=== PATIENT | male | born 1970 | race Caucasian/White ===

== ENCOUNTER 2018-12-28 20:07 | Emergency (ER) | payer BC, OTHER ==
[~2018-12-28] VITALS: Ht 182.9 cm; Wt 83.9 kg
[2018-12-28] MEDS ORDERED: DEXAMETHASONE 4 MG/ML SDV (DECADRON) IM ONE (21:15)
[2018-12-28] MEDS ORDERED: PRD20T PO (21:16)
--- NOTE | 2018-12-28 21:16 | ED General ---
General Stated Complaint: BODY RASH History of Present Illness Date Seen by Provider: Dec 28, 2018 Time Seen by Provider: 21:11 Initial Comments Patient presenting to the emergency department for evaluation of a rash on bilateral arms and bilateral knees that started approximately to 3 days ago after pulling some weeds in his yard he thinks he was exposed to something. It appears to be raised vesicular weeping especially on his right forearm. The rash on his left arm and bilateral knees are not as severe. He says it is not painful just intensely pruritic. He denies any fevers chills nausea vomiting or other systemic symptoms. Allergies and Home Medications Allergies Coded Allergies: No Known Drug Allergies (Unverified , 12/28/18) Patient Home Medication List Home Medication List Reviewed: Yes Review of Systems Review of Systems Constitutional: no symptoms reported EENTM: no symptoms reported Respiratory: no symptoms reported Cardiovascular: no symptoms reported Skin: rash Past Ecsclqz-Lxixww-Kogcku Hx Patient Social History Recent Foreign Travel: No Contact w/Someone Who Travel: No Physical Exam Vital Signs Capillary Refill : Height, Weight, BMI Height: '" Weight: lbs. oz. kg; BMI Method: General Appearance: No Apparent Distress, WD/WN Respiratory: No Respiratory Distress Cardiovascular: Regular Rate, Rhythm Neurologic/Psychiatric: Alert, Oriented x3 Skin: Rash (vesicular weeping rash most prominent on the right forearm circumferentially was also present on the left arm and bilateral knees.) Progress/Results/Core Measures Suspected Sepsis SIRS Temperature: Pulse: Respiratory Rate: Blood Pressure / Mean: Results/Orders My Orders Orders - LISBETH DOOLEY DO Dexamethasone Injection (Decadron Inject (12/28/18 21:15) Vital Signs/I&O Capillary Refill : Progress Note : Progress Note Rash is not consistent with zoster rather this is likely a poison gabrielle or poison sumac exposure. He will be given a dose of intramuscular Decadron here and sent home on a steroid taper. Patient told to follow up primary care provider within 2-3 days and come back to the ED sooner with worsening pain rash fevers or other general concerns. Patient aware and agreeable with plan and verbalized understanding of the above instructions. Departure Impression Primary Impression: Poison gabrielle dermatitis Disposition: 01 HOME, SELF-CARE Condition: Stable Departure-Patient Inst. Referrals: NO,LOCAL PHYSICIAN (PCP) Primary Care Physician Patient Instructions: Poison Gabrielle Add. Discharge Instructions: Take benadryl for itching. Cover in calamine lotion. Take the steroids as prescribed. Scripts Prednisone (Prednisone) 20 Mg Tab 20 MG PO DAILY for 14 Days, #25 TAB 0 Refills Prov: LISBETH DOOLEY DO 12/28/18 LISBETH DOOLEY DO Dec 28, 2018 21:16
[2018-12-28 21:25] VITALS: BP 133/71
--- OUTSIDE RECORDS SUMMARY | 2018-12-29 04:31 | XMS REPORT | Continuity of Care Document ---
Author Organization Unknown Address Unknown Allergies Active Description Code Type Severity Reaction Onset Reported/Identified Relationship to Patient Clinical Status Yes NO NAME AVAILABLE 05893 DRUG N/A N/A Yes Fireants [id number] Animal Allergy Moderate N/A Medications There is no data. Problems Date Dx Coded Attending Type Code Diagnosis Diagnosed By 01/28/2017 Romario Martin MD M25.569 Pain in unspecified knee 02/05/2017 Romario Martin M25.561 Pain In Right Knee 06/09/2017 Romario Martin MD M54.5 Low back pain 06/09/2017 Romario Martin MD M62.82 Rhabdomyolysis 06/09/2017 Jenny Chung M62.82 Rhabdomyolysis 06/09/2017 Romario Martin MD R94.5 Abnormal results of liver function studies 06/09/2017 Jenny Chung R94.5 Abnormal results of liver function studies 06/11/2017 Jenny Chung M62.82 Rhabdomyolysis 06/18/2017 Jenny Chung M62.82 Rhabdomyolysis 07/15/2017 Jenny Chung S39.012D Strain Of Muscle, Fascia And Tendon Of Lower Back, Subsequent Encounter Procedures Code [place] [address] Knee 3 View RT- NG 01/28/2017 67132 Office/outpatient visit; established patient, level 3 01/28/2017 TCARE1 Transfer of Care from Emergency Department 06/09/2017 86546 CPK-NG 06/09/2017 28537 Comprehensive metabolic panel- 06/09/2017 66908* Urinalysis. 06/09/2017 31182 CBC with Auto Diff-NG 06/09/2017 36751 Urinalysis with culture if indicated- NG 06/09/2017 41714 Culture, Urine-NG 06/09/2017 56221 Hepatitis Panel Acute-NG 06/09/2017 46820 Office/outpatient visit; established patient, level 3 06/09/2017 75258 CPK-NG 06/10/2017 89026 Comprehensive metabolic panel- NG 06/10/2017 68203 Comprehensive metabolic panel- NG 06/12/2017 39038 CPK-NG 06/12/2017 63166* Physical Therapy 06/18/2017 67381 Physical Therapy Evaluation - NG 06/18/2017 Results There is no data. Encounters ACCT No. Visit Date/Time Discharge Status Pt. Type Provider Facility Loc./Unit Complaint [id number] 06/10/2017 10:33:48 06/10/2017 23:59:59 CLS Outpatient Tawny CHUNG [facility] [id number] 06/09/2017 17:26:19 06/09/2017 23:59:59 CLS Outpatient Tawny CHUNG [facility] [id number] 06/18/2017 13:22:43 06/18/2017 13:24:39 DIS Unknown Veronica SMIHT, Romario Edward [facility] [id number] 06/26/2017 13:05:00 08/01/2017 10:11:00 DIS Outpatient Jenny Chung [facility] [id number] 06/18/2017 08:20:00 06/18/2017 23:59:00 DIS Outpatient Jenny Chung [facility] [id number] 06/11/2017 09:29:00 06/11/2017 23:59:00 DIS Outpatient Jenny Chung [facility] [id number] 06/09/2017 11:17:00 06/09/2017 23:59:00 DIS Outpatient Jenny Chung [facility] [id number] 01/28/2017 13:45:00 01/28/2017 23:59:00 DIS Outpatient Romario Martin [facility] Radiology
== END 2018-12-28 21:25 | disposition home or self-care (01) ==
LOC: ER FS 20:09
DX: L23.7 Allergic contact dermatitis due to plants, except food (principal)
CPT/HCPCS: 99284

== ENCOUNTER 2021-06-24 17:19 | Emergency (ER) | payer SELFPAY ==
[~2021-06-24] VITALS: Ht 185.5 cm; Wt 85.1 kg
[~2021-06-24 17:19] MED LIST: PRD20T PO
--- OUTSIDE RECORDS SUMMARY | 2021-06-24 17:25 | XMS REPORT | Clinical Summary ---
Author Author [facility] Organization [facility] Address Unknown Phone Unavailable Care Team Providers Care Dollyman Name Role Phone PCP Unavailable Allergies Not on File Medications Not on file Active Problems Not on file Social History Date Tobacco Use Types Packs/Day Years Used Never Assessed Sex Assigned at Date Recorded Not on file Last Filed Vital Signs Not on file Plan of Treatment Health Maintenance Due Date Last Done Comments Varicella Vaccines (1 of 1973 2 - 2-dose childhood series) COVID-19 Vaccine (1) 1977 DTaP,Tdap,and Td Vaccines 12/11/1991 (1 - Tdap) MMR Vaccines-Adult 12/11/1991 Influenza Vaccine (#1) 2021 Pneumo-Vaccine: 65+Yrs (1 2037 of 1 - PPSV23) Hepatitis C Screening Completed 06/09/2017 HIB Vaccines Aged Out No longer eligible based on patient's age to complete this topic IPV Vaccines Aged Out No longer eligible based on patient's age to complete this topic Meningococcal Vaccine Aged Out No longer eligib le based on patient's age to complete this topic Pneumo-Vaccine: Peds (0-5 Aged Out No longer el igible based on patient's age to Yrs) & At-Risk Patients complete this topic (6-64 Yrs) Rotavirus Vaccines Aged Out No longer eligible based on patient's age to complete this topic Results Not on filefrom Last 3 Months
[2021-06-24] MEDS ORDERED: NS IV 1000 ML 1,000 ML IV SCH (18:00)
--- NOTE | 2021-06-24 18:09 | ED Abdominal Pain ---
General Chief Complaint: Abdominal/GI Problems Stated Complaint: DIARRHEA,FEVER 2 DAYS AGO Source of Information: Patient Exam Limitations: No Limitations History of Present Illness Date Seen by Provider: Jun 24, 2021 Time Seen by Provider: 19:30 Initial Comments Patient is a 50-year-old male who presents with 7-day history of diarrhea. Patient states he developed fever, abdominal cramping with diarrhea starting 7 days ago. The fever body aches and lasted for about 2 to 3 days and was accompanied by watery diarrhea. Fever has since resolved but he has continued to have watery diarrhea every 20 to 30 minutes for the past 3 days. It is worse with eating. He has tried various mcwg-bej-pkzcecv remedies including charcoal and Imodium but discontinued the Imodium due to cramping. Reports feeling dizzy upon standing. He denies syncope, chest pain palpitation shortness of breath or bloody stools. No recent antibiotics or history of C. difficile. He does report possible diarrhea illness exposure from coworker. No other acute symptoms or complaints. Timing/Duration: 6-7 Days Severity/Quality: Cramping Location: Other Radiation: Other Activities at Onset: Other Modifying Factors: Improves With Other Associated Symptoms: Other Allergies and Home Medications Allergies Coded Allergies: No Known Drug Allergies (Unverified , 12/28/18) Patient Home Medication List Home Medication List Reviewed: Yes Prednisone (Prednisone) 20 Mg Tab, 20 MG PO DAILY Prescribed by: LISBETH DOOLEY on 12/28/182115 Review of Systems Review of Systems Constitutional: see HPI EENTM: See HPI Respiratory: See HPI Cardiovascular: See HPI Gastrointestinal: See HPI Genitourinary: See HPI Musculoskeletal: see HPI Skin: see HPI Psychiatric/Neurological: See HPI Endocrine: See HPI Hematologic/Lymphatic: See HPI All Other Systems Reviewed Negative Unless Noted: Yes Past Uxjhvqt-Uohkje-Trpfvb Hx Patient Social History Tobacco Use?: Yes Seasonal Allergies Seasonal Allergies: No Past Medical History Surgeries: Yes Orthopedic Respiratory: No Cardiac: No Neurological: No Genitourinary: No Gastrointestinal: No Musculoskeletal: No Endocrine: No HEENT: No Cancer: No Psychosocial: No Integumentary: No Blood Disorders: No Adverse Reaction/Blood Tranf: No Physical Exam Vital Signs Vital Signs - First Documented 06/24/21 17:39 Temp 36.5 Pulse 88 Resp 16 B/P (MAP) 135/90 (105) Pulse Ox 96 O2 Delivery Room Air Capillary Refill : Height/Weight/BMI Height: 6'0" Weight: 185lbs. oz. 83.575646xh; BMI Method:Stated General Appearance: WD/WN, no apparent distress HEENT: PERRL/EOMI, normal ENT inspection, pharynx normal Neck: non-tender, full range of motion, supple Respiratory: lungs clear Cardiovascular: normal peripheral pulses, regular rate, rhythm Gastrointestinal: non tender, soft Focused Exam Sepsis Stage: Ruled Out Progress/Results/Core Measures Results/Orders Lab Results Laboratory Tests Test 06/24/21 18:05 Range/Units White Blood Count 6.5 4.3-11.0 10^3/uL Red Blood Count 5.41 4.30-5.52 10^6/uL Hemoglobin 14.9 13.3-17.7 g/dL Hematocrit 43 40-54 % Mean Corpuscular Volume 79 L 80-99 fL Mean Corpuscular Hemoglobin 28 25-34 pg Mean Corpuscular Hemoglobin Concent 35 32-36 g/dL Red Cell Distribution Width 12.4 10.0-14.5 % Platelet Count 364 130-400 10^3/uL Mean Platelet Volume 9.2 9.0-12.2 fL Immature Granulocyte % (Auto) 1 % Neutrophils (%) (Auto) 49 42-75 % Lymphocytes (%) (Auto) 35 12-44 % Monocytes (%) (Auto) 13 H 0-12 % Eosinophils (%) (Auto) 2 0-10 % Basophils (%) (Auto) 1 0-10 % Neutrophils # (Auto) 3.2 1.8-7.8 X 10^3 Lymphocytes # (Auto) 2.2 1.0-4.0 X 10^3 Monocytes # (Auto) 0.9 0.0-1.0 X 10^3 Eosinophils # (Auto) 0.1 0.0-0.3 10^3/uL Basophils # (Auto) 0.0 0.0-0.1 10^3/uL Immature Granulocyte # (Auto) 0.1 0.0-0.1 10^3/uL Sodium Level 136 135-145 MMOL/L Potassium Level 3.3 L 3.6-5.0 MMOL/L Chloride Level 95 L 98-107 MMOL/L Carbon Dioxide Level 28 21-32 MMOL/L Anion Gap 13 5-14 MMOL/L Blood Urea Nitrogen 15 7-18 MG/DL Creatinine 0.97 0.60-1.30 MG/DL Estimat Glomerular Filtration Rate 83 BUN/Creatinine Ratio 15 Glucose Level 112 H 70-105 MG/DL Calcium Level 8.9 8.5-10.1 MG/DL Corrected Calcium 8.9 8.5-10.1 MG/DL Total Bilirubin 0.2 0.1-1.0 MG/DL Aspartate Amino Transf (AST/SGOT) 11 5-34 U/L Alanine Aminotransferase (ALT/SGPT) 14 0-55 U/L Alkaline Phosphatase 47 40-136 U/L Total Protein 6.9 6.4-8.2 GM/DL Albumin 4.0 3.2-4.5 GM/DL My Orders Orders - ARON JIMENEZ DO Cbc With Automated Diff (06/24/21 17:50) Comprehensive Metabolic Panel (06/24/21 17:50) C Difficile Ag + Toxin A/B. (06/24/21 17:50) Isolation Central Supply Req (06/24/21 17:50) Ns Iv 1000 Ml (Sodium Chloride 0.9%) (06/24/21 18:00) Vital Signs/I&O 06/24/21 17:39 Temp 36.5 Pulse 88 Resp 16 B/P (MAP) 135/90 (105) Pulse Ox 96 O2 Delivery Room Air Departure Communication (Admissions) Infectious diarrhea lasting several days. Stable vital signs. Will obtain basic labs and send out stool sample out for C. difficile with close PCP follow- up. Impression Primary Impression: Diarrhea Disposition: 01 HOME, SELF-CARE Condition: Stable Departure-Patient Inst. Decision time for Depature: 19:09 Referrals: NO,LOCAL PHYSICIAN (PCP) Primary Care Physician Patient Instructions: Diarrhea in Adolescents and Adults Add. Discharge Instructions: Your evaluated in the emergency department for diarrhea. The exact cause of your symptoms has not been determined. Please take Pepto-Bismol and Bentyl as needed for diarrhea and cramping. Follow-up with your PCP for review of C. di fficile results and for further management and antibiotic recommendations. Return to the ED if new or worsening symptoms peer All discharge instructions reviewed with patient and/or family. Voiced understanding. Scripts Dicyclomine HCl (Dicyclomine HCl) 20 Mg Tablet 20 MG PO QID, #20 TAB Prov: ARON JIMENEZ DO 06/24/21 ARON JIMENEZ DO Jun 24, 2021 18:09
[2021-06-24 18:11] LABS: WHITE BLOOD COUNT 6.5 10^3/uL (4.3-11.0)
[2021-06-24 18:12] LABS: BASOPHILS % (AUTO) 1 % (0-10); EOSINOPHILS # (AUTO) 0.1 10^3/uL (0.0-0.3); EOSINOPHILS % (AUTO) 2 % (0-10); HEMATOCRIT 43 % (40-54); HEMOGLOBIN 14.9 g/dL (13.3-17.7); LYMPHOCYTES # (AUTO) 2.2 X 10^3 (1.0-4.0); LYMPHOCYTES % (AUTO) 35 % (12-44); MEAN CORPUSCULAR HEMOGLOBIN 28 pg (25-34); MEAN CORPUSCULAR HGB CONC 35 g/dL (32-36); MEAN CORPUSCULAR VOLUME 79 fL (80-99); MEAN PLATELET VOLUME 9.2 fL (9.0-12.2); MONOCYTES # (AUTO) 0.9 X 10^3 (0.0-1.0); MONOCYTES % (AUTO) 13 % (0-12); NEUTROPHILS # (AUTO) 3.2 X 10^3 (1.8-7.8); NEUTROPHILS % (AUTO) 49 % (42-75); PLATELET COUNT 364 10^3/uL (130-400)
[2021-06-24 18:29] LABS: BILIRUBIN,TOTAL 0.2 MG/DL (0.1-1.0); CALCIUM 8.9 MG/DL (8.5-10.1); CREATININE SERUM 0.97 MG/DL (0.60-1.30); POTASSIUM 3.3 MMOL/L (3.6-5.0); TOTAL PROTEIN 6.9 GM/DL (6.4-8.2)
[2021-06-24] MEDS ORDERED: DICY20TA PO (19:11)
[2021-06-24 19:18] VITALS: BP 135/90
== END 2021-06-24 19:21 | disposition home or self-care (01) ==
LOC: EDUNIT# 17:19 → ER FS 17:21
DX: R19.7 Diarrhea, unspecified (principal)
CPT/HCPCS: 36415; 80053; 85025; 87324; 87449